=== PATIENT | male | born 1975 | race Caucasian/White ===

== ENCOUNTER 2018-05-09 14:21 | Inpatient (IN) ==
[2018-05-09] MEDS ORDERED: ONDANSETRON 4 MG/2 ML VIAL IV STA (15:17)
[2018-05-09] MEDS ORDERED: HYDROmorphone 2 MG/1 ML VIAL IV STA (15:17)
[2018-05-09] MEDS ORDERED: METOCLOPRAMIDE 10 MG/2 ML VIAL IV STA (15:28)
[2018-05-09] MEDS ORDERED: HYDROmorphone 2 MG/1 ML VIAL ONE (15:32)
[2018-05-09] MEDS ORDERED: ONDANSETRON 4 MG/2 ML VIAL ONE (15:32)
[2018-05-09] MEDS ORDERED: METOCLOPRAMIDE 10 MG/2 ML VIAL ONE (15:56)
[2018-05-09 16:03] LABS: Apearance,Urine CLEAR (Clear); Bilirubin,Urine Negative (Negative); Blood, Urine Negative (Negative); Glucose,Urine (UA) Negative (Negative); Ketones,Urine Negative (Negative); Mucus,Urine Many /LPF (Occasional); Nitrite,Urine Negative (Negative); Protein,Urine 100 MG/DL; RBC,Urine 1 /HPF (0-4); Squamous Epithelial Cell,Urine Occasional /HPF (0-10); Urine Color Amber (Yellow); Urine Specific Gravity 1.019 (1.001-1.035); WBC,Urine 3 /HPF (0-6)
[2018-05-09 16:52] LABS: Basophils # 0.1 10*3/uL (0.0-0.2); Eosinophils # 0.8 10*3/uL (0.0-0.87); Eosinophils % 6.6 % (0.00-10.9); Hematocrit 40.5 VOL% (42.0-52.0); Immature Granulocytes % 1.2 %; Immature Granulocytes Absolute 0.14 #; Lymphocytes # 0.5 10*3/uL (1.4-4.0); Lymphocytes % 4.4 % (21.2-54.2); Mean Corpuscular HGB Conc 32.1 GM/DL (32-36); Mean Corpuscular Hemoglobin 28 PG (27-34); Mean Corpuscular Volume 85.8 FL (87-102); Mean Platelet Volume 11.1 FL (9.6-12.0); Monocytes # 0.9 10*3/uL (0.11-0.8); Monocytes % 7.6 % (1.7-12.7); Neutrophils # 9.5 10*3/uL (1.4-7.4); Neutrophils % 79.2 % (38.7-73.9); Platelet Count 247 T/CUMM (130-400); Red Blood Count 4.72 MC/CUMM (3.8-5.5); Red Cell Distribution Width 13.2 % (9.3-17.3)
[2018-05-09 16:56] LABS: Alanine Aminotransferase 30 U/L (16-61); Albumin 2.9 G/DL (3.4-5.0); Alkaline Phosphatase 346 U/L (45-117); Amylase 14 U/L (25-115); Aspartate Amino Transferase 116 U/L (0-37); Blood Urea Nitrogen 15 MG/DL (7-18); Calcium 8.9 MG/DL (8.5-10.1); Glucose 118 MG/DL (74-106); Osmolality,Calculated 269.2 MOS/KG (273-304); Sodium 134 MMOL/L (136-145); Total Protein 7.6 G/DL (6.4-8.3); Troponin I < 0.015 NG/ML (0.00-0.045)
[2018-05-09] MEDS ORDERED: ACETAMINOPHEN 325 MG TABLET PO PRN (17:41)
[2018-05-09] MEDS: SODIUM CHLORIDE 0.9% 1,000 ML IV SCH (19:59)
[2018-05-09] MEDS: ONDANSETRON 4 MG/2 ML VIAL IV PRN ×2 (20:02→23:52)
[2018-05-09] MEDS: HYDROmorphone 2 MG/1 ML VIAL IV PRN ×2 (20:05→23:54)
[2018-05-10 05:25] LABS: Basophils # 0.1 10*3/uL (0.0-0.2); Eosinophils # 1.1 10*3/uL (0.0-0.87); Eosinophils % 9.6 % (0.00-10.9); Hematocrit 35.3 VOL% (42.0-52.0); Hemoglobin 11.3 GM/DL (14.0-18.0); Immature Granulocytes Absolute 0.11 #; Lymphocytes # 0.7 10*3/uL (1.4-4.0); Lymphocytes % 6.2 % (21.2-54.2); Mean Corpuscular Hemoglobin 27 PG (27-34); Mean Corpuscular Volume 85.1 FL (87-102); Mean Platelet Volume 10.8 FL (9.6-12.0); Monocytes # 1.1 10*3/uL (0.11-0.8); Monocytes % 10.2 % (1.7-12.7); Neutrophils # 8.1 10*3/uL (1.4-7.4); Platelet Count 226 T/CUMM (130-400); Red Blood Count 4.15 MC/CUMM (3.8-5.5); Red Cell Distribution Width 13.3 % (9.3-17.3); White Blood Count 11.2 T/CUMM (4-12)
[2018-05-10] MEDS: ONDANSETRON 4 MG/2 ML VIAL IV PRN (05:26)
[2018-05-10] MEDS: HYDROmorphone 2 MG/1 ML VIAL IV PRN ×3 (05:28→16:25)
[2018-05-10 06:08] LABS: Calcium 8.4 MG/DL (8.5-10.1); Osmolality,Calculated 268.2 MOS/KG (273-304); Potassium 4.6 MMOL/L (3.5-5.1); Risk Ratio 8.87; Thyroid Stimulating Hormone 1.02 uIU/ml (0.358-3.74); VLDL CHOLESTEROL 26.4 MG/DL
[2018-05-10] MEDS ORDERED: PALONOSETRON 0.25 MG/5 ML VIAL IV ONE ×2 (07:58→16:00)
[2018-05-10] MEDS ORDERED: DEXAMETHASONE INJ 10 MG in SODIUM CHLORIDE 0.9% 50 ML IV ONE (07:58)
[2018-05-10] MEDS ORDERED: DEXTROSE 5% IV ONE (08:00)
[2018-05-10] MEDS ORDERED: OXALIPLATIN 150 MG in DEXTROSE 5% 250 ML IV ONE (08:00)
[2018-05-10] MEDS ORDERED: IRINOTECAN IV ONE (08:00)
[2018-05-10] MEDS: PANTOPRAZOLE 40 MG TABLET PO SCH (09:28)
[2018-05-10] MEDS: SODIUM CHLORIDE 0.9% 1,000 ML IV SCH ×2 (09:50→23:50)
[2018-05-10] MEDS: BISOPROLOL/HCTZ 10-6.25 MG TABLET PO SCH (16:33)
[2018-05-10] MEDS: OMEGA 3 ACID ETHYL ESTERS 1 GM CAPSULE PO SCH (16:33)
[2018-05-10] MEDS: MORPHINE ER 15 MG TABLET PO SCH ×2 (16:34→20:56)
[2018-05-10] MEDS: ASPIRIN EC 81 MG TABLET PO SCH (16:35)
[2018-05-10] MEDS: ALLOPURINOL 300 MG TABLET PO SCH (16:35)
[2018-05-10] MEDS: FLUOROURACIL 2,400 MG in SODIUM CHLORIDE 0.9% 1,000 ML IV SCH (21:45)
[2018-05-11 04:39] LABS: Basophils % 0.4 % (0.0-0.8); Eosinophils % 0.1 % (0.00-10.9); Hematocrit 33.7 VOL% (42.0-52.0); Hemoglobin 10.6 GM/DL (14.0-18.0); Immature Granulocytes % 0.9 %; Immature Granulocytes Absolute 0.08 #; Lymphocytes # 0.6 10*3/uL (1.4-4.0); Lymphocytes % 6.4 % (21.2-54.2); Mean Corpuscular HGB Conc 31.5 GM/DL (32-36); Mean Corpuscular Hemoglobin 27 PG (27-34); Mean Corpuscular Volume 85.1 FL (87-102); Mean Platelet Volume 10.8 FL (9.6-12.0); Monocytes # 0.7 10*3/uL (0.11-0.8); Monocytes % 6.9 % (1.7-12.7); Neutrophils % 85.3 % (38.7-73.9); Platelet Count 222 T/CUMM (130-400); Red Blood Count 3.96 MC/CUMM (3.8-5.5); Red Cell Distribution Width 13.2 % (9.3-17.3); White Blood Count 9.4 T/CUMM (4-12)
[2018-05-11 05:25] LABS: Calcium 8.2 MG/DL (8.5-10.1); Osmolality,Calculated 271.2 MOS/KG (273-304); Potassium 4.4 MMOL/L (3.5-5.1)
[2018-05-11] MEDS: ALLOPURINOL 300 MG TABLET PO SCH (09:23)
[2018-05-11] MEDS: BISOPROLOL/HCTZ 10-6.25 MG TABLET PO SCH (09:25)
[2018-05-11] MEDS: ASPIRIN EC 81 MG TABLET PO SCH (09:25)
[2018-05-11] MEDS: OMEGA 3 ACID ETHYL ESTERS 1 GM CAPSULE PO SCH (09:25)
[2018-05-11] MEDS: PANTOPRAZOLE 40 MG TABLET PO SCH (09:25)
[2018-05-11] MEDS: MORPHINE ER 15 MG TABLET PO SCH ×2 (13:57→22:43)
[2018-05-11] MEDS: FLUOROURACIL 2,400 MG in SODIUM CHLORIDE 0.9% 1,000 ML IV SCH (22:12)
[2018-05-12 05:57] LABS: Basophils # 0.1 10*3/uL (0.0-0.2); Basophils % 0.3 % (0.0-0.8); Eosinophils # 0.2 10*3/uL (0.0-0.87); Eosinophils % 1.6 % (0.00-10.9); Hematocrit 36.3 VOL% (42.0-52.0); Hemoglobin 11.3 GM/DL (14.0-18.0); Immature Granulocytes % 0.7 %; Lymphocytes # 0.8 10*3/uL (1.4-4.0); Lymphocytes % 5.6 % (21.2-54.2); Mean Corpuscular HGB Conc 31.1 GM/DL (32-36); Mean Corpuscular Hemoglobin 27 PG (27-34); Mean Corpuscular Volume 85.4 FL (87-102); Mean Platelet Volume 10.7 FL (9.6-12.0); Monocytes # 0.4 10*3/uL (0.11-0.8); Neutrophils # 13.1 10*3/uL (1.4-7.4); Neutrophils % 88.8 % (38.7-73.9); Platelet Count 248 T/CUMM (130-400); Red Blood Count 4.25 MC/CUMM (3.8-5.5); Red Cell Distribution Width 13.4 % (9.3-17.3); White Blood Count 14.8 T/CUMM (4-12)
[2018-05-12 06:48] LABS: Calcium 8.5 MG/DL (8.5-10.1); Osmolality,Calculated 278.7 MOS/KG (273-304); Potassium 4.6 MMOL/L (3.5-5.1)
[2018-05-12] MEDS: SODIUM CHLORIDE 0.9% 1,000 ML IV SCH (06:50)
[2018-05-12] MEDS: PANTOPRAZOLE 40 MG TABLET PO SCH (09:27)
[2018-05-12] MEDS: OMEGA 3 ACID ETHYL ESTERS 1 GM CAPSULE PO SCH (09:27)
[2018-05-12] MEDS: BISOPROLOL/HCTZ 10-6.25 MG TABLET PO SCH (09:28)
[2018-05-12] MEDS: ASPIRIN EC 81 MG TABLET PO SCH (09:28)
[2018-05-12] MEDS: MORPHINE ER 15 MG TABLET PO SCH (09:29)
[2018-05-12 21:29] VITALS: BP 125/78
== END 2018-05-12 19:00 | disposition home or self-care, planned readmission (81) | DRG 436 ==
LOC: N.ED 14:21 → SUATTDRO 17:40 → N.EDINP 17:40 → N.4E 21:01
PROVIDERS: ADMIT Internal Medicine; ATTEND Internal Medicine

== ENCOUNTER 2018-05-15 10:03 | Inpatient (IN) ==
[2018-05-15] MEDS ORDERED: KETOROLAC 30 MG/1 ML VIAL IV STA (10:47)
[2018-05-15] MEDS ORDERED: ONDANSETRON 4 MG/2 ML VIAL IV STA (10:47)
[2018-05-15 11:36] LABS: Basophils # 0.1 10*3/uL (0.0-0.2); Basophils % 0.9 % (0.0-0.8); Eosinophils # 0.9 10*3/uL (0.0-0.87); Eosinophils % 11.9 % (0.00-10.9); Hematocrit 35.3 VOL% (42.0-52.0); Hemoglobin 11.2 GM/DL (14.0-18.0); Immature Granulocytes % 1.5 %; Immature Granulocytes Absolute 0.12 #; Lymphocytes # 0.6 10*3/uL (1.4-4.0); Lymphocytes % 7.4 % (21.2-54.2); Mean Corpuscular HGB Conc 31.7 GM/DL (32-36); Mean Corpuscular Hemoglobin 27 PG (27-34); Mean Corpuscular Volume 84.2 FL (87-102); Mean Platelet Volume 11.1 FL (9.6-12.0); Monocytes # 0.3 10*3/uL (0.11-0.8); Neutrophils # 5.9 10*3/uL (1.4-7.4); Neutrophils % 74.3 % (38.7-73.9); Red Blood Count 4.19 MC/CUMM (3.8-5.5); Red Cell Distribution Width 13.6 % (9.3-17.3); White Blood Count 7.9 T/CUMM (4-12)
[2018-05-15 11:42] LABS: Platelet Count 149 T/CUMM (130-400)
[2018-05-15 11:56] LABS: Calcium 8.3 MG/DL (8.5-10.1); Osmolality,Calculated 272.2 MOS/KG (273-304); Potassium 3.8 MMOL/L (3.5-5.1)
[2018-05-15 12:31] LABS: Band Neutrophils 1 % (0-10); Eosinophils 17 % (0-10); Hypochromasia 1+; Lymphocytes 7 % (20-55); Microcytosis 1+; Ovalocytes Slight; Segmented Neutrophils 69 % (50-85); Total Cells Counted 100
[2018-05-15 12:32] LABS: Platelet Estimate Adequate
[2018-05-15] MEDS ORDERED: ENOXAPARIN 120 MG/0.8 ML SYRINGE SUBCUT STA (13:19)
[2018-05-15] MEDS ORDERED: ONDANSETRON 4 MG TABLET PO PRN (14:09)
[2018-05-15] MEDS ORDERED: MORPHINE ER 15 MG TABLET PO PRN (14:09)
[2018-05-15] MEDS ORDERED: PANTOPRAZOLE 40 MG VIAL IV STA (14:14)
[2018-05-15] MEDS ORDERED: PNEUMOCOCCAL VACCINE (23 VALENT) 0.5 ML VIAL IM ONE (15:23)
[2018-05-15] MEDS: SODIUM CHLORIDE 0.9% 1,000 ML IV SCH (15:41)
[2018-05-15] MEDS: APIXABAN 5 MG TABLET PO SCH ×2 (16:00→23:28)
[2018-05-15 16:22] LABS: INR 1.3; PT Patient Result 13.6 SECS
[2018-05-16] MEDS: APIXABAN 5 MG TABLET PO SCH ×2 (08:33→20:13)
[2018-05-16] MEDS: ALLOPURINOL 300 MG TABLET PO SCH (08:34)
[2018-05-16] MEDS: OMEGA 3 ACID ETHYL ESTERS 1 GM CAPSULE PO SCH (08:34)
[2018-05-16] MEDS: ASPIRIN EC 81 MG TABLET PO SCH (08:34)
[2018-05-16] MEDS: BISOPROLOL/HCTZ 10-6.25 MG TABLET PO SCH (08:34)
[2018-05-16 11:25] LABS: Albumin 2.2 G/DL (3.4-5.0); Bilirubin,Total 0.6 MG/DL (0.2-1.0); Calcium 8.1 MG/DL (8.5-10.1); Osmolality,Calculated 272.1 MOS/KG (273-304); Potassium 3.8 MMOL/L (3.5-5.1); Total Protein 6.4 G/DL (6.4-8.3)
[2018-05-17 02:55] LABS: Basophils # 0.1 10*3/uL (0.0-0.2); Basophils % 0.8 % (0.0-0.8); Eosinophils # 0.5 10*3/uL (0.0-0.87); Eosinophils % 7.6 % (0.00-10.9); Hematocrit 30.7 VOL% (42.0-52.0); Hemoglobin 9.7 GM/DL (14.0-18.0); Immature Granulocytes % 1.9 %; Immature Granulocytes Absolute 0.12 #; Lymphocytes # 0.5 10*3/uL (1.4-4.0); Lymphocytes % 7.3 % (21.2-54.2); Mean Corpuscular HGB Conc 31.6 GM/DL (32-36); Mean Corpuscular Hemoglobin 27 PG (27-34); Mean Corpuscular Volume 83.9 FL (87-102); Monocytes # 0.6 10*3/uL (0.11-0.8); Monocytes % 9.2 % (1.7-12.7); Neutrophils # 4.7 10*3/uL (1.4-7.4); Neutrophils % 73.2 % (38.7-73.9); Platelet Count 141 T/CUMM (130-400); Red Blood Count 3.66 MC/CUMM (3.8-5.5); Red Cell Distribution Width 13.5 % (9.3-17.3); White Blood Count 6.4 T/CUMM (4-12)
[2018-05-17 03:18] LABS: Albumin 2.1 G/DL (3.4-5.0); Calcium 7.9 MG/DL (8.5-10.1); Osmolality,Calculated 269.2 MOS/KG (273-304); Total Protein 5.9 G/DL (6.4-8.3)
[2018-05-17] MEDS: BISOPROLOL/HCTZ 10-6.25 MG TABLET PO SCH (08:39)
[2018-05-17] MEDS: OMEGA 3 ACID ETHYL ESTERS 1 GM CAPSULE PO SCH (08:39)
[2018-05-17] MEDS: ALLOPURINOL 300 MG TABLET PO SCH (08:39)
[2018-05-17] MEDS: ASPIRIN EC 81 MG TABLET PO SCH (08:39)
[2018-05-17] MEDS: SODIUM CHLORIDE 0.9% 1,000 ML IV SCH ×2 (10:34→13:57)
[2018-05-17 13:05] VITALS: BP 116/67
[2018-05-17] MEDS ORDERED: RIVAROXABAN 15 MG TABLET PO SCH (17:00)
== END 2018-05-17 14:20 | disposition home or self-care (01) | DRG 197 ==
LOC: N.ED 10:03 → N.EDINP 14:07 → SUATTDRO 14:07 → N.ICU 14:35 → N.4E 05-16 13:07
PROVIDERS: ADMIT Phlebology; ATTEND Internal Medicine

== ENCOUNTER 2018-07-14 11:59 | Inpatient (IN) ==
[2018-07-14] MEDS ORDERED: ONDANSETRON 4 MG/2 ML VIAL IV STA (13:06)
[2018-07-14] MEDS ORDERED: HYDROmorphone 2 MG/1 ML VIAL IV STA (13:06)
[2018-07-14 13:25] LABS: Basophils # 0.1 10*3/uL (0.0-0.2); Basophils % 0.4 % (0.0-0.8); Eosinophils # 0.1 10*3/uL (0.0-0.87); Eosinophils % 0.4 % (0.00-10.9); Hematocrit 33.4 VOL% (42.0-52.0); Hemoglobin 10.6 GM/DL (14.0-18.0); Immature Granulocytes % 4.7 %; Immature Granulocytes Absolute 1.12 #; Lymphocytes # 2.1 10*3/uL (1.4-4.0); Lymphocytes % 8.5 % (21.2-54.2); Mean Corpuscular HGB Conc 31.7 GM/DL (32-36); Mean Corpuscular Hemoglobin 27 PG (27-34); Mean Corpuscular Volume 83.5 FL (87-102); Mean Platelet Volume 11.6 FL (9.6-12.0); Monocytes # 0.4 10*3/uL (0.11-0.8); Monocytes % 1.8 % (1.7-12.7); NRBC # 0.02 10*3/uL; Neutrophils # 20.3 10*3/uL (1.4-7.4); Neutrophils % 84.2 % (38.7-73.9); Platelet Count 79 T/CUMM (130-400); White Blood Count 24.1 T/CUMM (4-12)
[2018-07-14 13:46] LABS: Osmolality,Calculated 260.9 MOS/KG (273-304); Potassium 4.2 MMOL/L (3.5-5.1)
[2018-07-14 13:59] LABS: Anisocytosis 1+; Eosinophils 1 % (0-10); Hypochromasia 1+; Lymphocytes 6 % (20-55); Segmented Neutrophils 92 % (50-85); Total Cells Counted 100
[2018-07-14 14:00] LABS: Platelet Estimate Decreased
[2018-07-14] MEDS ORDERED: MORPHINE 4 MG/1 ML VIAL IV PRN (15:42)
[2018-07-14] MEDS ORDERED: ONDANSETRON 4 MG/2 ML VIAL IV PRN (15:42)
[2018-07-14] MEDS ORDERED: diphenhydrAMINE CAP 25 MG CAPSULE PO PRN (15:42)
[2018-07-14] MEDS ORDERED: NICOTINE 21 MG/24 HR PATCH TRANSDERM PRN (15:42)
[2018-07-14] MEDS ORDERED: SODIUM CHLORIDE 0.9% 1,000 ML IV SCH (16:00)
[2018-07-14] MEDS ORDERED: PROMETHAZINE 25 MG TABLET PO PRN (19:23)
[2018-07-14 19:45] LABS: Bilirubin,Direct 0.65 MG/DL (0.0-0.20); Bilirubin,Indirect 0.5 MG/DL (0.0-1.0); Bilirubin,Total 1.1 MG/DL (0.2-1.0); Total Protein 6.3 G/DL (6.4-8.3)
[2018-07-14] MEDS: PIPERACILLIN/TAZOBACTAM 3,375 MG in SODIUM CHLORIDE 0.9% 100 ML IV SCH (19:45)
[2018-07-14 20:01] LABS: Risk Ratio 7.8; VLDL CHOLESTEROL 43.6 MG/DL
[2018-07-14] MEDS ORDERED: LIDOCAINE 2% VISCOUS 100 ML BOTTLE SWISH/SPIT PRN (20:05)
[2018-07-14] MEDS ORDERED: GABAPENTIN 100 MG CAPSULE PO SCH (21:00)
[2018-07-14] MEDS ORDERED: MORPHINE ER 30 MG TABLET PO SCH (21:00)
[2018-07-14] MEDS: MORPHINE ER 30 MG TABLET PO SCH (21:08)
[2018-07-14] MEDS: GABAPENTIN 100 MG CAPSULE PO SCH (21:12)
[2018-07-14] MEDS: DEXT 5% NACL 0.9% KCL 20 MEQ 20 MEQ/1,000 ML BAG IV SCH (21:24)
[2018-07-15] MEDS: HYDROmorphone 2 MG/1 ML VIAL IV PRN ×3 (02:01→18:00)
[2018-07-15] MEDS: PIPERACILLIN/TAZOBACTAM 3,375 MG in SODIUM CHLORIDE 0.9% 100 ML IV SCH ×2 (04:16→17:51)
[2018-07-15 05:18] LABS: Basophils # 0.1 10*3/uL (0.0-0.2); Basophils % 0.4 % (0.0-0.8); Eosinophils # 0.1 10*3/uL (0.0-0.87); Eosinophils % 0.6 % (0.00-10.9); Hematocrit 31.7 VOL% (42.0-52.0); Hemoglobin 9.9 GM/DL (14.0-18.0); Immature Granulocytes % 2.2 %; Immature Granulocytes Absolute 0.37 #; Lymphocytes # 1.8 10*3/uL (1.4-4.0); Lymphocytes % 10.4 % (21.2-54.2); Mean Corpuscular HGB Conc 31.2 GM/DL (32-36); Mean Corpuscular Hemoglobin 27 PG (27-34); Monocytes # 0.5 10*3/uL (0.11-0.8); Monocytes % 2.7 % (1.7-12.7); Neutrophils # 14.2 10*3/uL (1.4-7.4); Neutrophils % 83.7 % (38.7-73.9); Red Blood Count 3.73 MC/CUMM (3.8-5.5); Red Cell Distribution Width 21.7 % (9.3-17.3); White Blood Count 16.9 T/CUMM (4-12)
[2018-07-15 05:22] LABS: Platelet Count 85 T/CUMM (130-400)
[2018-07-15 05:33] LABS: Apearance,Urine Slightly Hazy (Clear); Bilirubin,Urine Negative (Negative); Blood, Urine Negative (Negative); Glucose,Urine (UA) Negative (Negative); Ketones,Urine Negative (Negative); Nitrite,Urine Negative (Negative); Protein,Urine Negative; RBC,Urine 2 /HPF (0-4); Squamous Epithelial Cell,Urine Occasional /HPF (0-10); Urine Color Amber (Yellow); Urine Specific Gravity 1.042 (1.001-1.035); WBC,Urine 3 /HPF (0-6)
[2018-07-15 05:37] LABS: Albumin 1.8 G/DL (3.4-5.0); Bilirubin,Total 0.9 MG/DL (0.2-1.0); Calcium 7.9 MG/DL (8.5-10.1); Osmolality,Calculated 260.9 MOS/KG (273-304); Potassium 3.9 MMOL/L (3.5-5.1); Total Protein 5.9 G/DL (6.4-8.3)
[2018-07-15 06:04] LABS: Platelet Estimate Decreased
[2018-07-15 06:05] LABS: Hypochromasia Slight; Polychromasia Few
[2018-07-15] MEDS ORDERED: RIVAROXABAN 20 MG TABLET PO SCH (08:00)
[2018-07-15] MEDS: GABAPENTIN 100 MG CAPSULE PO SCH ×3 (08:46→21:31)
[2018-07-15] MEDS: MORPHINE ER 30 MG TABLET PO SCH ×2 (09:03→21:32)
[2018-07-15] MEDS: HEPARIN DRIP 25,000 UNITS/500 ML PREMIX IV SCH ×2 (11:21→22:14)
[2018-07-15 16:21] LABS: INR 3.6
[2018-07-15 16:24] LABS: PT Patient Result 38.3 SECS
[2018-07-15] MEDS: DEXT 5% NACL 0.9% KCL 20 MEQ 20 MEQ/1,000 ML BAG IV SCH (17:53)
[2018-07-16] MEDS: PIPERACILLIN/TAZOBACTAM 3,375 MG in SODIUM CHLORIDE 0.9% 100 ML IV SCH ×3 (02:06→17:54)
[2018-07-16 05:34] LABS: Basophils % 0.3 % (0.0-0.8); Eosinophils # 0.1 10*3/uL (0.0-0.87); Hematocrit 32.7 VOL% (42.0-52.0); Hemoglobin 10.3 GM/DL (14.0-18.0); Immature Granulocytes % 0.7 %; Immature Granulocytes Absolute 0.08 #; Lymphocytes # 1.9 10*3/uL (1.4-4.0); Lymphocytes % 15.3 % (21.2-54.2); Mean Corpuscular HGB Conc 31.5 GM/DL (32-36); Mean Corpuscular Hemoglobin 26 PG (27-34); Mean Platelet Volume 11.9 FL (9.6-12.0); Monocytes # 0.5 10*3/uL (0.11-0.8); Monocytes % 4.3 % (1.7-12.7); Neutrophils # 9.6 10*3/uL (1.4-7.4); Neutrophils % 78.4 % (38.7-73.9); Platelet Count 143 T/CUMM (130-400); Red Blood Count 3.99 MC/CUMM (3.8-5.5); White Blood Count 12.2 T/CUMM (4-12)
[2018-07-16 05:55] LABS: Osmolality,Calculated 255.5 MOS/KG (273-304); Potassium 4.1 MMOL/L (3.5-5.1)
[2018-07-16 05:57] LABS: Platelet Estimate Adequate
[2018-07-16 05:58] LABS: Anisocytosis 2+
[2018-07-16 05:59] LABS: Hypochromasia Slight; Poikilocytosis Slight
[2018-07-16 08:19] LABS: INR 1.9; PT Patient Result 20.7 SECS
[2018-07-16] MEDS: GABAPENTIN 100 MG CAPSULE PO SCH ×3 (09:29→21:40)
[2018-07-16] MEDS: MORPHINE ER 30 MG TABLET PO SCH ×2 (09:29→21:36)
[2018-07-16 11:26] LABS: Partial Thromboplastin Time 37.5 SECS (0-40)
[2018-07-16 11:33] LABS: PT Patient Result 21.6 SECS
[2018-07-16] MEDS ORDERED: ALBUMIN 25% 12.5 GM/50 ML VIAL IV ONE (11:43)
[2018-07-16] MEDS ORDERED: TISSUE ADHESIVE 1 EACH APPLICATOR TOP ONE (11:43)
[2018-07-16] MEDS ORDERED: ALBUMIN 25% 12.5 GM in PREMIX 1 EACH IV ONE (12:02)
[2018-07-16] MEDS: DEXT 5% NACL 0.9% KCL 20 MEQ 20 MEQ/1,000 ML BAG IV SCH (13:38)
[2018-07-16] MEDS: HYDROmorphone 2 MG/1 ML VIAL IV PRN (17:58)
[2018-07-16] MEDS: APIXABAN 5 MG TABLET PO SCH (21:36)
[2018-07-17] MEDS: PIPERACILLIN/TAZOBACTAM 3,375 MG in SODIUM CHLORIDE 0.9% 100 ML IV SCH (01:59)
[2018-07-17] MEDS: MORPHINE ER 30 MG TABLET PO SCH (07:59)
[2018-07-17] MEDS: APIXABAN 5 MG TABLET PO SCH (07:59)
[2018-07-17] MEDS: GABAPENTIN 100 MG CAPSULE PO SCH (07:59)
[2018-07-17] MEDS ORDERED: ZALEPLON 5 MG CAPSULE PO PRN (12:10)
[2018-07-17] MEDS ORDERED: MORPHINE ER 30 MG TABLET PO SCH (12:11)
[2018-07-17 12:17] VITALS: BP 127/86
[2018-07-17] MEDS ORDERED: HEPARIN LOCK FLUSH 500 UNIT/5 ML SYRINGE IV ONE (13:48)
== END 2018-07-17 14:25 | disposition home or self-care (01) | DRG 281 ==
LOC: N.ED 11:59 → N.4E 15:37
PROVIDERS: ADMIT Hospitalist; ATTEND Hospitalist

== ENCOUNTER 2018-07-20 11:49 | Inpatient (IN) ==
[2018-07-20] MEDS ORDERED: SODIUM CHLORIDE 0.9% 1,000 ML IV STA (12:12)
[2018-07-20] MEDS ORDERED: ONDANSETRON 4 MG/2 ML VIAL IV STA ×2 (12:12→12:13)
[2018-07-20] MEDS ORDERED: ALBUMIN 25% 50 GM in PREMIX 1 EACH IV ONE (12:13)
[2018-07-20] MEDS ORDERED: HYDROmorphone 2 MG/1 ML VIAL IV STA (12:13)
[2018-07-20 13:11] LABS: Basophils % 0.2 % (0.0-0.8); Eosinophils # 0.1 10*3/uL (0.0-0.87); Eosinophils % 0.9 % (0.00-10.9); Hematocrit 38.3 VOL% (42.0-52.0); Hemoglobin 12.3 GM/DL (14.0-18.0); Immature Granulocytes % 2.2 %; Immature Granulocytes Absolute 0.12 #; Lymphocytes # 0.8 10*3/uL (1.4-4.0); Lymphocytes % 14.6 % (21.2-54.2); Mean Corpuscular HGB Conc 32.1 GM/DL (32-36); Mean Corpuscular Hemoglobin 27 PG (27-34); Mean Corpuscular Volume 83.1 FL (87-102); Mean Platelet Volume 10.9 FL (9.6-12.0); Monocytes # 0.8 10*3/uL (0.11-0.8); Monocytes % 14.1 % (1.7-12.7); Neutrophils # 3.8 10*3/uL (1.4-7.4); Platelet Count 179 T/CUMM (130-400); Red Blood Count 4.61 MC/CUMM (3.8-5.5); Red Cell Distribution Width 24.1 % (9.3-17.3); White Blood Count 5.5 T/CUMM (4-12)
[2018-07-20 13:32] LABS: Albumin 1.7 G/DL (3.4-5.0); Calcium 7.6 MG/DL (8.5-10.1); Osmolality,Calculated 252.5 MOS/KG (273-304); Potassium 5.7 MMOL/L (3.5-5.1); Total Protein 5.6 G/DL (6.4-8.3)
[2018-07-20] MEDS ORDERED: PROMETHAZINE 25 MG/1 ML VIAL IM PRN (14:34)
[2018-07-20] MEDS ORDERED: ACETAMINOPHEN 325 MG TABLET PO PRN (14:34)
[2018-07-20] MEDS: SODIUM CHLORIDE 0.9% 1,000 ML IV SCH (19:00)
[2018-07-20] MEDS: ENOXAPARIN 30 MG/0.3 ML SYRINGE SUBCUT SCH (19:01)
[2018-07-20] MEDS: ONDANSETRON 4 MG/2 ML VIAL IV PRN (22:36)
[2018-07-21] MEDS: SODIUM CHLORIDE 0.9% 1,000 ML IV SCH ×3 (03:35→22:45)
[2018-07-21] MEDS: ONDANSETRON 4 MG/2 ML VIAL IV PRN ×2 (04:22→23:43)
[2018-07-21 08:02] LABS: Basophils % 0.2 % (0.0-0.8); Eosinophils # 0.2 10*3/uL (0.0-0.87); Eosinophils % 3.8 % (0.00-10.9); Hematocrit 36.1 VOL% (42.0-52.0); Hemoglobin 11.7 GM/DL (14.0-18.0); Immature Granulocytes % 2.8 %; Immature Granulocytes Absolute 0.12 #; Lymphocytes # 0.9 10*3/uL (1.4-4.0); Lymphocytes % 20.9 % (21.2-54.2); Mean Corpuscular HGB Conc 32.4 GM/DL (32-36); Mean Corpuscular Hemoglobin 27 PG (27-34); Mean Corpuscular Volume 84.3 FL (87-102); Mean Platelet Volume 10.6 FL (9.6-12.0); Monocytes # 0.7 10*3/uL (0.11-0.8); Monocytes % 17.2 % (1.7-12.7); Neutrophils # 2.3 10*3/uL (1.4-7.4); Neutrophils % 55.1 % (38.7-73.9); Red Blood Count 4.28 MC/CUMM (3.8-5.5); Red Cell Distribution Width 24.4 % (9.3-17.3); White Blood Count 4.3 T/CUMM (4-12)
[2018-07-21 08:06] LABS: Platelet Count 101 T/CUMM (130-400)
[2018-07-21] MEDS ORDERED: PROMETHAZINE 25 MG TABLET PO PRN (08:15)
[2018-07-21 08:23] LABS: Calcium 7.2 MG/DL (8.5-10.1); Osmolality,Calculated 259.1 MOS/KG (273-304)
[2018-07-21] MEDS ORDERED: SODIUM POLYSTYRENE SULFATE 15 GM/60 ML BOTTLE RECTAL ONE (08:27)
[2018-07-21] MEDS ORDERED: FLUCONAZOLE INJ 200 MG in PREMIX 1 EACH IV SCH (08:30)
[2018-07-21 08:54] LABS: Band Neutrophils 6 % (0-10); Eosinophils 6 % (0-10); Hypochromasia 1+; Lymphocytes 14 % (20-55); Nucleated Red Blood Cells 1 (0-5); Segmented Neutrophils 55 % (50-85); Total Cells Counted 100
[2018-07-21 08:55] LABS: Anisocytosis 1+; Microcytosis 1+; Platelet Estimate Decreased
[2018-07-21] MEDS ORDERED: PANTOPRAZOLE 40 MG VIAL IV SCH (09:00)
[2018-07-21] MEDS: PROMETHAZINE INJ 25 MG in SODIUM CHLORIDE 0.9% 50 ML IV PRN ×2 (10:02→20:13)
[2018-07-21] MEDS: MORPHINE ER 30 MG TABLET PO SCH ×2 (11:34→20:54)
[2018-07-21] MEDS: ENOXAPARIN 30 MG/0.3 ML SYRINGE SUBCUT SCH (17:57)
[2018-07-21] MEDS: HYDROmorphone 2 MG/1 ML VIAL IV PRN (23:44)
[2018-07-22] MEDS: PROMETHAZINE INJ 25 MG in SODIUM CHLORIDE 0.9% 50 ML IV PRN (03:53)
[2018-07-22] MEDS: HYDROmorphone 2 MG/1 ML VIAL IV PRN (04:12)
[2018-07-22 06:01] LABS: Amorphous Crystals,Urine Few /HPF (Few); Apearance,Urine CLOUDY (Clear); Bilirubin,Urine Negative (Negative); Blood, Urine Small mg/dL (Negative); Glucose,Urine (UA) 50 mg/dL (Negative); Hyaline Casts,Urine 1 /LPF (0-3); Ketones,Urine Negative (Negative); Mucus,Urine Occasional /LPF (Occasional); Nitrite,Urine Negative (Negative); Protein,Urine 100 MG/DL; RBC,Urine 7 /HPF (0-4); Squamous Epithelial Cell,Urine Occasional /HPF (0-10); Urine Color Amber (Yellow); Urine Urobilinogen < 2.0 EU/DL (0.2-1.0); WBC,Urine 5 /HPF (0-6)
[2018-07-22 06:11] LABS: Basophils % 0.3 % (0.0-0.8); Eosinophils # 0.1 10*3/uL (0.0-0.87); Eosinophils % 3.9 % (0.00-10.9); Immature Granulocytes % 1.9 %; Immature Granulocytes Absolute 0.07 #; Lymphocytes # 0.7 10*3/uL (1.4-4.0); Lymphocytes % 19.7 % (21.2-54.2); Mean Corpuscular HGB Conc 31.6 GM/DL (32-36); Mean Corpuscular Hemoglobin 27 PG (27-34); Mean Corpuscular Volume 85.4 FL (87-102); Mean Platelet Volume 11.3 FL (9.6-12.0); Monocytes # 0.6 10*3/uL (0.11-0.8); Monocytes % 17.2 % (1.7-12.7); Neutrophils # 2.1 10*3/uL (1.4-7.4); Platelet Count 138 T/CUMM (130-400); Red Blood Count 4.45 MC/CUMM (3.8-5.5); Red Cell Distribution Width 24.6 % (9.3-17.3); White Blood Count 3.6 T/CUMM (4-12)
[2018-07-22 06:43] LABS: Albumin 1.8 G/DL (3.4-5.0); Bilirubin,Total 1.4 MG/DL (0.2-1.0); Calcium 7.3 MG/DL (8.5-10.1); Osmolality,Calculated 264.8 MOS/KG (273-304); Potassium 5.4 MMOL/L (3.5-5.1)
[2018-07-22 07:09] LABS: Band Neutrophils 8 % (0-10); Eosinophils 7 % (0-10); Hypochromasia 1+; Lymphocytes 9 % (20-55); Microcytosis Slight; Platelet Estimate Normal; Segmented Neutrophils 51 % (50-85); Total Cells Counted 100
[2018-07-22] MEDS ORDERED: LORazepam 2 MG/1 ML VIAL IV PRN (08:18)
[2018-07-22] MEDS: SODIUM CHLORIDE 0.9% 1,000 ML IV SCH (08:29)
[2018-07-22] MEDS: MORPHINE 4 MG/1 ML VIAL IV PRN ×2 (08:33→12:14)
[2018-07-22] MEDS: ONDANSETRON 4 MG/2 ML VIAL IV PRN (12:12)
[2018-07-22] MEDS ORDERED: LIDOCAINE 2% VISCOUS 100 ML BOTTLE SWISH/SWAL PRN (13:14)
[2018-07-22] MEDS: SUCRALFATE 1 GM/10 ML UDCUP PO SCH ×2 (17:21→20:43)
[2018-07-22 17:38] VITALS: BP 65/51
== END 2018-07-22 21:00 | disposition expired | DRG 469 ==
LOC: EDBD → EDUNIT# → N.ED 11:49 → N.EDINP 14:34 → N.4E 17:45
PROVIDERS: ADMIT Internal Medicine Geriatric Medicine; ATTEND Internal Medicine Geriatric Medicine